=== PATIENT | male | born 1980 | race Caucasian/White ===

== ENCOUNTER 2022-07-20 13:20 | Emergency (ER) | payer MEDICAID, SELFPAY ==
[2022-07-20] VITALS (13 sets, daily range): BP systolic 98–119; BP diastolic 56–81; PULSE 50–74; RESP 18; TEMP 36.9; O2SAT 93–98; BMI 29.8
--- NOTE | 2022-07-20 14:53 | XRR_ITS ---
PROCEDURE INFORMATION: Exam: XR Chest Exam date and time: 07/20/2022 3:22 PM Age: 42 years old Clinical indication: Cough and dyspnea; Additional info: Dyspnea/cough TECHNIQUE: Imaging protocol: Radiologic exam of the chest. Views: 1 view. COMPARISON: No relevant prior studies available. FINDINGS: Lungs: Unremarkable. No consolidation. Pleural spaces: Unremarkable. No pleural effusion. No pneumothorax. Heart/Mediastinum: Unremarkable. No cardiomegaly. Bones/joints: Unremarkable. XR/XR chest 1V portable [id number] IMPRESSION: Negative chest examination
--- NOTE | 2022-07-20 14:58 | W.ED.ABDPA2 ---
HPI - Abdominal Pain General: Chief Complaint: Abdominal Pain Stated Complaint: abd pain/dizzy Time Seen by Provider: 07/20/22 14:52 Source: patient Mode of arrival: ambulatory History of Present Illness: 42-year-old male presents emergency room complaining of abdominal pain mostly focused in the epigastric area has been going on for about a week he has headache with that as well. He has taken some Tagamet and some sort of [id number] what he describes as acid reliever with moderate relief of symptoms at best but only transient. He denies hematochezia melena hematemesis Segura emesis no dysuria urgency or frequency. No vomiting or diarrhea no significant previous abdominal surgeries. MD elicited complaint: abdominal pain Pain Consistency: intermittent Location: Epigastric Severity: mild Quality: burning Radiation: none Exacerbating factors: nothing Relieving factors: nothing Associated Symptoms: Reports bloating, GI cramping, nausea and poor appetite; Denies anorexia, belching, change in bowel habits, change in stool character, chills, coffee ground emesis, constipation, diarrhea, dyspepsia, dysuria, excessive flatus, fever(s), heartburn, hematochezia, hematuria, hematemesis, fecal incontinence, loose stools, melena, syncope and vomiting Review of Systems Const: Denies: fever(s), chills, fatigue or malaise ENMT: Denies: throat pain, ear or mastoid pain, nasal discharge or nasal congestion Card: Denies: syncope Resp: Denies: dyspnea, productive cough or non-productive cough GI: Reports: nausea, bloating and GI cramping; Denies: vomiting, hematemesis, coffee ground emesis, heartburn, diarrhea, constipation, belching, excessive flatus, fecal incontinence, change in bowel habits, change in stool character, hematochezia or melena : Denies: dysuria or hematuria Skin/Breast: Denies: rash or pruritus PFSH ED PFSH: Medical History (Updated 07/20/22 @ 16:33 by Matt Guillen DO) Gastroesophageal reflux disease Seasonal allergies Social History (Updated 07/20/22 @ 15:30 by Matt Guillen DO) Smoking and tobacco status: current every day smoker Alcohol intake: current Alcohol intake frequency: few times a month Physical Exam Const: GENERAL APPEARANCE: cooperative and comfortable ORIENTATION/CONSCIOUSNESS: Yes awake, Yes oriented to person, Yes oriented to place and Yes oriented to time HENMT: COMMON NORMALS: normocephalic, atraumatic and hearing grossly normal bilaterally HEAD & SCALP: normocephalic and atraumatic Resp: COMMON NORMALS: normal respiratory effort, No retractions, No use of accessory muscles and clear to auscultation bilaterally AUSCULTATION: clear to auscultation bilaterally Cardio: COMMON NORMALS: regular rate, regular rhythm and No murmurs present (Cardio) RATE: regular rate RHYTHM: regular rhythm GI: COMMON NORMALS: Soft to palpation and No hepatosplenomegaly present AUSCULTATION: Yes normoactive bowel sounds PALPATION: Yes Soft to palpation, No Tenderness to palpation present (GI), No Guarding due to palpation present (GI) and Yes No hepatosplenomegaly present Extremity: COMMON NORMALS: normal to inspection, capillary refill normal, no clubbing, cyanosis or edema, no calf tenderness and no pedal edema Neuro: SENSORIUM/ORIENTATION: Yes oriented to person, Yes oriented to place and Yes oriented to time Skin: COMMON NORMALS: no rashes or lesions noted GENERAL SKIN EXAM: no rashes or lesions noted Course Vital Signs: Vital signs: Vital Signs Temperature 98.4 F 07/20/22 13:41 Pulse Rate 50 L 07/20/22 13:41 Blood Pressure 119/81 07/20/22 15:20 Pulse Oximetry 95 07/20/22 15:20 Oxygen Delivery Me thod 07/20/22 13:41 MDM - Abdominal Pain Medical Decision Making Transaminases elevated but normal abdominal exam. We will set up outpatient ultrasound of the gallbladder and follow-up with primary care switch him from famotidine to pantoprazole twice daily for 2 weeks then once daily. Return if he has further problems. Medical Records I reviewed the patient's medical records. Lab Data I reviewed the patient's lab results. 07/20/22 15:01 07/20/22 15:01 Labs/Radiology: Radiology Impressions Chest X-Ray 07/20/22 14:53 IMPRESSION: Negative chest examination Laboratory Results WBC 8.8 10^3/uL (4.0-10.0) 07/20/22 15:01 RBC 5.10 10^6/uL (4.1-5.3) 07/20/22 15:01 Hgb 14.5 g/dL (11.7-16.6) 07/20/22 15: Hct 42.5 % (42.0-52.0) 07/20/22 15: MCV 83.3 fl (80-94) 07/20/22 15: MCH 28.4 pg (28.0-34.0) 07/20/22 15: MCHC 34.1 g/dL (30.0-36.0) 07/20/22 15: RDW 12.1 % (12.1-15.1) 07/20/22 15: Plt Count 207 10^3/cmm (130-400) 07/20/22 15: MPV 10.8 fL (7.4-10.4) H 07/20/22 15: Neut % (Auto) 56.2 % 07/20/22 15: Lymph % (Auto) 23.4 % 07/20/22 15: [place] % (Auto) 17.1 % 07/20/22 15: Eos % (Auto) 2.2 % 07/20/22 15: Baso % (Auto) 0.3 % 07/20/22 15: Neut # (Auto) 4.91 10^3/uL (1.8-7.7) 07/20/22 15: Lymph # (Auto) 2.1 10^3/uL (0.8-4.8) 07/20/22 15: [place] # (Auto) 1.5 10^3/uL (0.2-0.9) H 07/20/22 15: Eos # (Auto) 0.2 10^3/uL (0.0-0.8) 07/20/22 15: Baso # (Auto) 0.0 10^3/uL (0.0-0.1) 07/20/22 15: Nucleated RBC % (auto) 0 % 07/20/22 15: Nucleated RBCs # 0.0 /100WBC 07/20/22 15: Sodium 140 mmol/L (136-145) 07/20/22 15: Potassium 4.9 mmol/L (3.5-5.1) 07/20/22 15:01 Chloride 103 mmol/L (98-107) 07/20/22 15:01 Carbon Dioxide 28 mmol/L (22-29) 07/20/22 15:01 Anion Gap 13.9 (5-19) 07/20/22 15: BUN 13 mg/dL (6-20) 07/20/22 15:01 Creatinine 1.0 mg/dL (0.7-1.2) 07/20/22 15: GFR Calculation 81.6 mL/min (90-130) L 07/20/22 15: Glucose 91 mg/dL (65-115) 07/20/22 15: Calculated Osmolality 290 mOsm/kg (285-295) 07/20/22 15: Calcium 9.1 mg/dL (8.5-10.5) 07/20/22 15: Total Bilirubin 0.9 mg/dL (0.15-1.2) 07/20/22 15:01 AST 67 U/L (0-40) H 07/20/22 15: ALT 136 U/L (0-41) H 07/20/22 15:01 Alkaline Phosphatase 77 U/L (40-130) 07/20/22 15:01 Total Protein 6.8 g/dL (6.6-8.7) 07/20/22 15: Albumin 4.2 g/dL (3.5-5.2) 07/20/22 15: Globulin 2.6 g/dL (1.3-4.6) 07/20/22 15:01 Urine Color Yellow (Yellow) 07/20/22 15:50 Urine Appearance Clear (CLEAR) 07/20/22 15:50 Urine pH 5 (5-7) 07/20/22 15:50 Ur Specific [place] 1.020 (1.005-1.030) 07/20/22 15:50 Urine Protein Neg (Negative) 07/20/22 15:50 Urine Glucose (UA) Norm (Normal) 07/20/22 15:50 Urine Ketones 1+ (Negative) H 07/20/22 15:50 Urine Blood Neg (Negative) 07/20/22 15:50 Urine Nitrate Negative (Negative) 07/20/22 15:50 Urine Bilirubin 1+ (Negative) H 07/20/22 15:50 Urine Urobilinogen Norm mg/dL (Negative) 07/20/22 15:50 Ur Leukocyte Esterase Negative (Negative) 07/20/22 15:50 Discharge Plan Discharge Patient Disposition: Home Clinical Impression: Gastroesophageal reflux disease Condition: Stable Prescriptions: New pantoprazole 40 mg tablet,delayed release (DR/EC) 40 mg PO BID 14 Days Qty: 60 0RF Rx Instructions: Twice daily for 14 days then daily Discontinued famotidine [Acid Mixing Operator (famotidine)] 20 mg Tablet 20 mg PO DAILY PRN (Reason: Acid Reflux) No Action Zyrtec 10 mg Tablet 10 mg PO DAILY PRN (Reason: Allergy Symptoms) Discharge Orders: Discharge ED (Routine); Ordered 07/20/22 Ordered By: Matt Guillen Discharge Diet: Usual diet Discharge Activity: Increase activity as tolerated Patient Instructions: Opioid Safety, Pain Management Activity Restrictions/Additional Instructions: You are seen today for abdominal pain. Your white count was normal very slight increase in transaminases but otherwise your labs are unremarkable. Recommend you stop the famotidine and start pantoprazole 40 mg twice a day for 14 days and then once daily after that. Case management make arrangements for you to have an outpatient ultrasound of the liver and gallbladder. Follow-up with your primary care doctor. Coding Level of Care Code ED Bonding Machine Setter for Dexter Cosby
[2022-07-20 15:27] LABS: Basophils % 0.3 %; Eosinophils # 0.2 10^3/uL (0.0-0.8); Eosinophils % 2.2 %; Hematocrit 42.5 % (42.0-52.0); Hemoglobin 14.5 g/dL (11.7-16.6); Lymphocytes # 2.1 10^3/uL (0.8-4.8); Lymphocytes % 23.4 %; Mean Corpuscular HGB Conc 34.1 g/dL (30.0-36.0); Mean Corpuscular Hemoglobin 28.4 pg (28.0-34.0); Mean Corpuscular Volume 83.3 fl (80-94); Mean Platelet Volume 10.8 fL (7.4-10.4); Monocytes # 1.5 10^3/uL (0.2-0.9); Monocytes % 17.1 %; Neutrophils # 4.91 10^3/uL (1.8-7.7); Neutrophils % 56.2 %; Nucleated Red Blood Cells % 0 %; Platelet Count 207 10^3/cmm (130-400); Red Cell Distribution Width 12.1 % (12.1-15.1); White Blood Count 8.8 10^3/uL (4.0-10.0)
[2022-07-20] MEDS: sodium chloride 0.9% 1,000 ML 999 ML IV (15:37)
[2022-07-20 15:45] LABS: Alanine Aminotransferase 136 U/L (0-41); Albumin Level 4.2 g/dL (3.5-5.2); Alkaline Phosphatase 77 U/L (40-130); Anion Gap 13.9 (5-19); Aspartate Amino Transferase 67 U/L (0-40); Blood Urea Nitrogen 13 mg/dL (6-20); Calcium 9.1 mg/dL (8.5-10.5); Carbon Dioxide 28 mmol/L (22-29); Chloride 103 mmol/L (98-107); Globulin 2.6 g/dL (1.3-4.6); Glomerular Filtration Rate 81.6 mL/min (90-130); Glucose 91 mg/dL (65-115); Osmolality Calculated 290 mOsm/kg (285-295); Potassium 4.9 mmol/L (3.5-5.1); Sodium 140 mmol/L (136-145); Total Bilirubin 0.9 mg/dL (0.15-1.2); Total Protein 6.8 g/dL (6.6-8.7)
[2022-07-20 16:07] LABS: Add Urine Microscopic? NO; Charge for UA Resulting for Rev
[2022-07-20 16:22] LABS: Urine Appearance Clear (CLEAR); Urine Color Yellow (Yellow); pH Urine 5 (5-7)
[2022-07-20 16:23] LABS: Bilirubin Urine 1+ (Negative); Blood Urine Neg (Negative); Glucose Urine UA Norm (Normal); Ketones Urine 1+ (Negative); Leukocyte Esterase Urine Negative (Negative); Nitrate Urine Negative (Negative); Protein Urine Neg (Negative); Urobilinogen Urine Norm (Negative)
--- NOTE | 2022-07-20 16:54 | ECG_ITS ---
[facility] Test Date: 2022-07-20 Pat Name: Jerrell Arango Department: Room: Gender: Male [employer] Specialist: : 1980 Requested By: Matt Gomez Order Number: [id number] Wally MD: Nisha Prajapati M.D. Measurements Intervals [place] Rate: 50 P: 55 RI: 160 QRS: 45 QRSD: 102 T: 29 QT: 445 QTc: 410 Interpretive Statements SINUS BRADYCARDIA No previous ECG available for comparison Electronically Signed On 07-20-2022 20:57:28 HEALTH SERVICES DIRECTOR by Nisha Prajapati M.D. [email or web address]
[2022-07-20 21:00] LABS: Hepatitis A Antibody IgM Non-Reactive (Nonreactive); Hepatitis B Core IgM Non-Reactive (Nonreactive); Hepatitis B Surface Antigen Non-Reactive (Nonreactive); Hepatitis C Virus Antibody Non-Reactive (Nonreactive)
--- NOTE | 2022-07-21 12:50 | DCPLANNER ---
Addendum entered by Kay Hernández 08/17/22 07:36: Patient did attend appointment Addendum entered by Kay Hernández 07/25/22 08:16: Patient has an US of gallbladder scheduled for Monday July 25, 2022 at 11:30. Centralized scheduling will call patient with appointment information. Original Note: manager entry had message to schedule an outpatient gallbladder ultrasound for patient. manager entry faxed signed order to centralized scheduling, who will call patient with appointment information.
== END 2022-07-20 17:41 | disposition home or self-care (01) ==
PROVIDERS: Emergency Provider Family Medicine
DX: K21.9 Gastro-esophageal reflux disease without esophagitis (principal)
CPT/HCPCS: 36415; 71045; 80053; 80074; 81003; 85025; 93005; 96360; 99285; J7030

== ENCOUNTER 2022-07-25 10:12 | Outpatient (CLI) | payer MEDICAID, SELFPAY ==
--- NOTE | 2022-07-25 | US_ITS ---
WS: [id number] RIGHT UPPER QUADRANT ULTRASOUND HISTORY: ELEVATED LIVER ENZYMES COMPARISON: None available. Liver: 16.7 cm in length. Liver is top normal size. Diffuse mild heterogeneity and coarse echotexture . No mass identified. No bile duct dilatation. Portal Vein: Normal hepatopetal flow with monophasic waveform. Gallbladder: Normally distended gallbladder with no stones or wall thickening. CBD: 0.2 cm Pancreas: Head and body are negative. Tail is obscured by bowel gas. Right kidney: 10.3 cm in length. Normal size kidney. There is a hyperechoic focus in the renal cortex . May be a small nonshadowing calcification. Benign in appearance. Aorta and IVC: Unremarkable abdominal aorta and IVC. No ascites. US/US gall bladder [id number] IMPRESSION: 1. Normal gallbladder. 2. Liver is top normal size with mild heterogeneity. Likely from hepatic steat osis.
== END 2022-07-25 10:13 | disposition home or self-care (01) ==
LOC: RAD 10:19
PROVIDERS: PCP Nurse Practitioner Family; Visit Provider Family Medicine
DX: R74.8 Abnormal levels of other serum enzymes (principal)
CPT/HCPCS: 76705